=== PATIENT | female | born 2000 ===

== ENCOUNTER 2022-04-08 10:32 | Inpatient (IN) ==
[2022-04-08] MEDS ORDERED: OXYTOCIN 30 UNITS/500 ML BAG IV PRN ×2 (16:05→16:43)
[2022-04-08 17:32] LABS: Hematocrit (blood only) 33.8 % (37-47); Hemoglobin 10.4 g/dL (12.0-16.0); Mean Corpuscular Hemoglobin 20.6 pg (25-34); Mean Corpuscular Hgb Conc 30.8 g/dL (32-36); Mean Corpuscular Volume 66.8 fL (80-100); Platelet Count 243 K/uL (130-400); RDW Coefficient of Variation 19.8 % (11.5-14.5); RDW Standard Deviation 47.4 fL (36.4-46.3); Red Blood Count 5.06 M/uL (4.2-5.4); White Blood Count 11.73 K/uL (4.8-10.8)
[2022-04-08] MEDS: LACTATED RINGER'S 1,000 ML IV PRN ×2 (17:39→19:45)
[2022-04-08] MEDS ORDERED: BUTORPHANOL TARTRATE 1 MG/ML VIAL IV PRN (19:12)
[2022-04-08] MEDS ORDERED: BUTORPHANOL TARTRATE 1 MG/ML VIAL ONE (19:25)
[2022-04-08] MEDS ORDERED: Nursing to Pharmacy Communication SCH (20:00)
[2022-04-08] MEDS ORDERED: ePHEDrine sulfate 50 MG/ML AMP ONE (20:39)
[2022-04-08] MEDS ORDERED: fentaNYL citrate 100 MCG/2 ML VIAL ONE (20:40)
[2022-04-08] MEDS ORDERED: SODIUM CHLORIDE 0.9% INJ 10 ML VIAL ONE (20:40)
[2022-04-08] MEDS ORDERED: fentaNYL 2MCG/ML ROPIVACAINE 1.25MG/ML 100 ML BAG EPI ONE (20:40)
[2022-04-08] MEDS ORDERED: BUPIVACAINE 0.25% 30 ML VIAL ONE (20:40)
[2022-04-08 20:53] LABS: Rubella IgG Ab Immune (Immune)
[2022-04-08] MEDS ORDERED: ePHEDrine sulfate 50 MG/ML AMP IV PRN (21:24)
[2022-04-08] MEDS ORDERED: diphenhydrAMINE 50 MG/ML VIAL IV PRN (21:24)
[2022-04-08] MEDS ORDERED: NALOXONE HCL 0.4 MG/1 ML VIAL/CARP IV PRN (21:24)
[2022-04-08] MEDS ORDERED: fentaNYL 2MCG/ML ROPIVACAINE 1.25MG/ML 100 ML BAG EPI PRN (21:24)
[2022-04-08] MEDS ORDERED: NALBUPHINE HCL INJ 10 MG/ML AMP IV PRN (21:24)
[2022-04-08] MEDS ORDERED: NALOXONE HCL 1 MG in SODIUM CHLORIDE 0.9% 1000ML 1,000 ML IV PRN (21:24)
[2022-04-08] MEDS ORDERED: ONDANSETRON INJ 2 MG/ML 2 ML VIAL IV PRN (21:24)
--- NOTE | 2022-04-08 21:29 | Anesthesiology Consultation ---
Date of Service April 08, 2022 Nepali speaking Assessment & Plan Chart Review Chart Review: Patient NOT seen in Pre Admission Testing and Acceptable Risk for Labor Epidural Consults Requested none ASA ASA2 Proposed Anesthesia Anesthesia Type: Labor Epidural and CSE Risk / Benefits Reviewed With: PT / POA / Parent / Guardian, Accepts Plan and Informed Consent Obtained History Height/Weight Height: 5 ft 2 in Weight: 70.76 kg Allergies Allergy/AdvReac Type Severity Reaction Status Date / Time No Known Allergies Allergy Unverified 04/08/22 17:21 Medications Home Medications Medication Instructions Recorded Confirmed Last Taken prenat.vits,stephanie,kvs-aowa-ngvzp 1 tab PO DAILY 04/08/22 04/08/22 Unknown Active Medications Generic Name Dose Route Start Last Admin Trade Name Freq PRN Reason Stop Dose Admin Oxytocin 30 units in 500 mls @ 10 mls/hr 04/08/22 16:05 04/08/22 21:00 Pitocin IV 04/10/22 16:04 0.72 units/hr .Q24H PRN 12 mls/hr Labor Induction/Augmentation Titration Protocol 0.6 UNITS/HR Lactated Ringer's 1,000 mls @ 125 mls/hr 04/08/22 16:43 04/08/22 19:45 Lr IV 04/10/22 16:42 125 mls/hr .Q8H PRN Administration L&D Protocol Protocol NPO Date Last Intake of Fluids: 04/08/22 Time Last Intake of Fluids: 20:00 Date Last Intake of Solids: 04/08/22 Time Last Intake of Solids: 08:00 Past Medical History Medical History COVID-19 affecting childbirth No known health problems Exercise / Class Metabolic Activity II 4-5 Yardwork/Stairs/Walk up hill Past Surgical History Surgical History No history of previous surgery Past Anesthesia History No Hx of Anesthesia Complications and No Family Hx of Anesthesia Complications History of PONV No Hx of PONV and History of PONV Social History Smoking Status: Never smoker Hx Alcohol Use: No Hx Substance Use: No substance use type: does not use Review of Systems cough, runny nose Physical Exam Vital Signs Last Vital Signs Temp 36.9 C 05/13/22 20:45 Pulse 79 04/08/22 21:24 Resp 20 04/08/22 20:00 BP 136/82 04/08/22 21:23 Pulse Ox 100 04/08/22 21:24 ENMT Mouth: no TMJ abnormality Thyromental Distance: > or= 3.5 Finger Breadths Mallampati Class: II Neck normal visual inspection Respiratory normal respiratory effort and + cough Auscultation: lungs clear to auscultation bilaterally Cardiovascular Rate/Rhythm: regular rate and regular rhythm Musculoskeletal Spine: normal cervical ROM Neurologic moves all extremities Psychiatric Orientation: alert and oriented x 3 Testing Laboratory Results 04/08/22 17:20 Blood Type O Positive 04/08/22 17:20
[2022-04-09] MEDS ORDERED: Nursing to Pharmacy Communication SCH (01:15)
[2022-04-09] MEDS: LACTATED RINGER'S 1,000 ML IV PRN ×2 (02:06→04:35)
[2022-04-09] MEDS ORDERED: SODIUM CHLORIDE 0.9% INJ 10 ML VIAL ONE (03:19)
[2022-04-09] MEDS ORDERED: BUPIVACAINE 0.25% 30 ML VIAL ONE (03:19)
--- NOTE | 2022-04-09 03:47 | Communication Note ---
Date of Service: April 09, 2022 The patient's epidural was redosed. The note is on her epidural record.
[2022-04-09] MEDS ORDERED: CITRIC ACID/SODIUM CITRATE 15 ML UDC PO SCH (07:30)
[2022-04-09] MEDS ORDERED: cefOXitin 2,000 MG in DEXTROSE 5% 50 ML IV SCH (08:00)
[2022-04-09] MEDS ORDERED: ONDANSETRON INJ 2 MG/ML 2 ML VIAL ONE (08:14)
[2022-04-09] MEDS ORDERED: OXYTOCIN 10 UNITS/ML 10ML VIAL ONE ×2 (08:15→09:20)
[2022-04-09] MEDS ORDERED: fentaNYL citrate 100 MCG/2 ML VIAL ONE (08:40)
[2022-04-09] MEDS ORDERED: MoRPHine SULFATE PF 1 MG/ML 10 ML AMP/VIAL ONE (08:41)
[2022-04-09] MEDS ORDERED: ePHEDrine sulfate 50 MG/ML SYR ONE (09:13)
[2022-04-09] MEDS ORDERED: PHENYLEPHRINE 100MCG/ML 5ML SYR ONE ×2 (09:13→09:28)
[2022-04-09] MEDS ORDERED: OXYTOCIN 10 UNITS/ML 10ML VIAL IM ONE (09:20)
[2022-04-09] MEDS ORDERED: NALOXONE HCL 0.4 MG/1 ML VIAL/CARP IV PRN (09:26)
[2022-04-09] MEDS ORDERED: diphenhydrAMINE 50 MG/ML VIAL IV PRN (09:26)
[2022-04-09] MEDS ORDERED: NALOXONE HCL 1 MG in SODIUM CHLORIDE 0.9% 1000ML 1,000 ML IV PRN (09:26)
[2022-04-09] MEDS ORDERED: PROMETHAZINE HCL 25 MG in SODIUM CHLORIDE 0.9% 50 ML IV PRN (09:26)
[2022-04-09] MEDS ORDERED: ONDANSETRON INJ 2 MG/ML 2 ML VIAL IV PRN (09:26)
[2022-04-09] MEDS ORDERED: NALBUPHINE HCL INJ 10 MG/ML AMP IV PRN (09:26)
[2022-04-09] MEDS ORDERED: MoRPHine SULFATE PF 1 MG/ML 10 ML AMP/VIAL INT SPINAL ONE (09:26)
[2022-04-09] MEDS ORDERED: NALOXONE HCL 0.08 MG in SYRINGE 1.8 ML IV PRN (09:26)
[2022-04-09] MEDS ORDERED: LACTATED RINGER'S 500 ML IV PRN (09:26)
[2022-04-09] MEDS ORDERED: ePHEDrine sulfate 50 MG/ML AMP IV PRN (09:26)
--- NOTE | 2022-04-09 09:26 | Anesthesia Procedure Note ---
Date of Service April 09, 2022 Anesthesia Post Epidural Note Vital Signs Vital Signs: Temp Pulse Resp BP Pulse Ox 37.5 C 115 H 20 141/88 H 100 04/09/22 07:32 04/09/22 08:30 04/09/22 07:32 04/09/22 08:26 04/09/22 08:30 Pain Intensity Abdomen: Pain Intensity: 8 Notes Mental Status: alert / awake / arousable Nausea / Vomiting: adequately controlled Pain: adequately controlled Airway Patency, RR, SpO2: stable & adequate BP & HR: stable & adequate Hydration State: stable & adequate Neuraxial Anesthesia: was administered and sensory block is resolving Anesthetic Complications: no major complications apparent Epidural: Removed without complications and With tip intact Notes: @ 0842 epidural cath removed w/ tip intact
[2022-04-09] MEDS ORDERED: NO NARCOTICS OR SEDATIVES SCH (09:30)
[2022-04-09] MEDS ORDERED: SODIUM CHLORIDE 0.9% 1000ML 1,000 ML IV SCH (09:30)
--- NOTE | 2022-04-09 09:32 | Communication Note ---
Date of Service: April 09, 2022 At 0842 epidural cath removed w/tip intact; Pt had patchy epidural analgesia w/ multiple top off boluses,hence, the decision to remove epidural cath, and perf orm SAB for definitive conduction block.
[2022-04-09] MEDS ORDERED: BENZOCAINE 20% AER SPR 82.5 GM CAN EXT PRN (09:44)
[2022-04-09] MEDS ORDERED: HYDROCORTISONE ACETATE 25 MG SUPP PR PRN (09:44)
[2022-04-09] MEDS ORDERED: MAGNESIUM HYDROXIDE SUSP 30 ML UDC PO PRN (09:44)
[2022-04-09] MEDS ORDERED: SENNA 8.6 MG TAB PO PRN (09:44)
[2022-04-09] MEDS ORDERED: DIPHTHERIA/TETANUS/PERTUSSIS 0.5 ML SYR/VIAL IM ONE (09:44)
[2022-04-09] MEDS ORDERED: OXYTOCIN 20 UNITS in LACTATED RINGER'S 20 ML IV SCH (09:45)
[2022-04-09] MEDS ORDERED: LACTATED RINGER'S 1,000 ML IV SCH (09:45)
--- NOTE | 2022-04-09 09:59 | History and Physical Report ---
CHIEF COMPLAINT: Term , arrest of labor. HISTORY OF PRESENT ILLNESS: The patient is a 41-year-old 1, para 0, who has been followed in our office for care and delivery. She came in at about 40 weeks and 2 days. She had come in about 2 days earlier, was sent home, then came in the morning of admission having regular contract ions. She was observed all day, she started to make cervical change. She was diagnosed as being in labor. She subsequently was augmented with IV Pitocin, had her water ruptured. At that time, there w as light meconium noted. She eventually stimulated with IV Pitocin and she dilated up to about 8 cm and a 0 station and had an arrest of labor for over 5 hours with no descent or further dilatation. Af ter 5 hours with maximal stimulation with IV Pitocin, she was diagnosed as having cephalopelvic dispr oportion scheduled for a low segment section. ALLERGIES: She has no known drug allergies. PAST SURGICAL HISTORY: She has had no previous surgeries. MEDICATIONS: She is on no chronic pills or medications. SOCIAL HISTORY: No smoking, no alcohol intake. FAMILY HISTORY: Mom is 40 in good health. Father 41 in good health. Two brothers, 1 sister, all in good health. REVIEW OF SYSTEMS: HEAD: No symptoms of frequent or severe headaches. EYES: No symptoms of blurred vision or double vision. EARS: No symptoms of frequent ear infections, difficulty hearing. NOSE: No symptoms of frequent nosebleeds or difficulty breathing through her nose. THROAT: No symptoms of frequent or severe sore throat or difficulty swallowing. RESPIRATORY SYSTEM: No history of asthma, chest pain, or shortness of breath. PHYSICAL EXAMINATION: GENERAL: Well-developed, well-nourished 21-year-old female, alert, oriented x3, in moderate amount o f distress due to contractions. EYES: Conjunctivae are pink. Sclerae white, no evidence of jaundice. ENT: Ears had normal light reflex bilaterally. Nose had normal mucosa. Septum is midline. There w ere no polyps. Throat had no erythema or evidence of infection. Teeth are in good state of repair. HEAD: Normocephalic, normal distribution of hair. NECK: Supple. Trachea midline. Thyroid is not enlarged. There is no adenopathy appreciated. Both carotids are of good intensity. CHEST: Clear to auscultation and percussion. No wheezes, rales or rhonchi appreciated. HEART: Had regular rhythm. S1 and S2 are normal. BREASTS: Normal. ABDOMEN: Soft and nontender. Abdomen revealed term size fetus. Estimated weight over 7-8 pounds. N o CVA tenderness, no calf tenderness. PELVIC: Revealed cervix to be 8 cm, vertex presentation, 0 station. IMPRESSION OF THIS CASE: Arrest of labor secondary to cephalopelvic disproportion. Job ID: [id number]
--- NOTE | 2022-04-09 10:16 | Anesthesiology Progress Note ---
Date of Service April 09, 2022 Anesthesia Post Procedure Vital Signs Vital Signs: Temp Pulse Resp BP Pulse Ox 04/09/22 10:10 74 121/74 99 04/09/22 10:05 80 99 04/09/22 10:00 82 120/68 99 04/09/22 09:55 96 H 100 04/09/22 09:50 85 119/67 99 04/09/22 08:31 20 04/09/22 08:30 115 H 100 04/09/22 08:26 100 H 141/88 H 04/09/22 08:25 106 H 100 04/09/22 08:20 101 H 99 04/09/22 08:15 104 H 99 04/09/22 08:10 110 H 131/84 100 04/09/22 08:05 106 H 100 04/09/22 08:00 98 H 20 99 04/09/22 07:56 93 H 134/82 04/09/22 07:55 96 H 99 04/09/22 07:50 96 H 99 04/09/22 07:45 96 H 99 04/09/22 07:41 93 H 136/87 04/09/22 07:40 92 H 99 04/09/22 07:35 93 H 99 04/09/22 07:32 37.5 C 20 04/09/22 07:30 105 H 100 04/09/22 07:25 102 H 135/85 100 04/09/22 07:20 107 H 100 04/09/22 07:15 101 H 100 04/09/22 07:10 116 H 100 04/09/22 07:05 111 H 100 04/09/22 07:01 20 04/09/22 07:00 114 H 100 04/09/22 06:57 110 H 156/84 H 04/09/22 06:55 117 H 100 04/09/22 06:50 110 H 100 04/09/22 06:45 114 H 20 100 04/09/22 06:41 104 H 147/91 H 04/09/22 06:40 102 H 100 04/09/22 06:35 109 H 100 04/09/22 06:30 107 H 20 100 04/09/22 06:26 100 H 139/88 04/09/22 06:25 101 H 99 04/09/22 06:23 37.8 C H 04/09/22 06:20 97 H 99 04/09/22 06:15 95 H 99 04/09/22 06:10 100 H 124/69 99 04/09/22 06:05 96 H 98 04/09/22 06:00 95 H 18 99 04/09/22 05:56 90 134/78 04/09/22 05:55 104 H 100 04/09/22 05:50 96 H 99 04/09/22 05:45 96 H 99 04/09/22 05:41 109 H 141/68 H 04/09/22 05:40 108 H 100 04/09/22 05:35 96 H 99 04/09/22 05:30 96 H 20 99 04/09/22 05:26 104 H 134/86 04/09/22 05:25 104 H 100 04/09/22 05:20 102 H 100 04/09/22 05:15 120 H 100 04/09/22 05:11 97 H 126/75 04/09/22 05:10 102 H 98 04/09/22 05:05 120 H 100 04/09/22 05:00 114 H 100 04/09/22 04:55 110 H 122/71 100 04/09/22 04:50 111 H 100 04/09/22 04:45 101 H 99 04/09/22 04:41 103 H 125/78 04/09/22 04:40 37.5 C 104 H 100 04/09/22 04:35 97 H 99 04/09/22 04:30 100 H 18 98 04/09/22 04:25 97 H 126/68 99 04/09/22 04:20 99 H 99 04/09/22 04:15 95 H 99 04/09/22 04:11 93 H 120/71 04/09/22 04:10 100 H 118/69 100 04/09/22 04:05 95 H 99 04/09/22 04:00 98 H 18 99 04/09/22 03:55 95 H 118/69 100 04/09/22 03:50 95 H 99 04/09/22 03:45 97 H 100 04/09/22 03:40 104 H 117/67 100 04/09/22 03:35 113 H 100 04/09/22 03:30 113 H 20 99 04/09/22 03:25 111 H 116/61 100 0514/22 03:20 94 H 99 04/09/22 03:15 97 H 99 04/09/22 03:10 93 H 113/60 99 04/09/22 03:05 93 H 99 04/09/22 03:00 109 H 20 100 04/09/22 02:56 89 112/60 04/09/22 02:55 93 H 99 04/09/22 02:50 92 H 99 04/09/22 02:45 95 H 20 100 04/09/22 02:40 100 H 120/77 100 04/09/22 02:35 92 H 99 04/09/22 02:30 95 H 100 04/09/22 02:26 99 H 110/67 04/09/22 02:25 37.3 C 109 H 100 04/09/22 02:20 118 H 100 04/09/22 02:15 105 H 99 04/09/22 02:11 145/105 H 04/09/22 02:10 109 H 100 04/09/22 02:05 88 100 04/09/22 02:00 91 H 20 100 04/09/22 01:55 83 125/72 100 04/09/22 01:50 88 100 04/09/22 01:45 87 99 04/09/22 01:41 84 121/74 04/09/22 01:40 77 100 04/09/22 01:35 83 99 04/09/22 01:30 88 20 100 04/09/22 01:26 88 136/93 04/09/22 01:25 77 100 04/09/22 01:20 82 100 04/09/22 01:15 84 100 04/09/22 01:10 79 127/71 99 04/09/22 01:05 88 100 04/09/22 01:00 86 22 99 04/09/22 00:56 92 H 140/70 04/09/22 00:55 92 H 100 04/09/22 00:50 94 H 100 04/09/22 00:45 37.0 C 82 100 04/09/22 00:42 86 139/80 04/09/22 00:40 91 H 100 04/09/22 00:35 94 H 100 04/09/22 00:30 72 20 100 04/09/22 00:26 81 142/85 H 04/09/22 00:25 91 H 100 04/09/22 00:20 82 100 04/09/22 00:15 87 100 04/09/22 00:12 88 131/85 04/09/22 00:10 87 100 04/09/22 00:05 87 100 04/09/22 00:00 99 H 18 100 04/08/22 23:57 78 113/70 04/08/22 23:55 84 100 04/08/22 23:50 76 100 04/08/22 23:45 71 100 04/08/22 23:42 68 126/68 04/08/22 23:40 73 100 04/08/22 23:35 84 100 04/08/22 23:30 91 H 20 100 04/08/22 23:26 121 H 126/72 04/08/22 23:25 95 H 100 04/08/22 23:20 92 H 100 04/08/22 23:15 96 H 100 04/08/22 23:10 84 100 04/08/22 23:05 84 100 04/08/22 23:00 100 H 20 100 04/08/22 22:56 80 104/57 L 04/08/22 22:55 83 100 04/08/22 22:50 71 100 04/08/22 22:45 73 100 04/08/22 22:42 86 98/53 L 04/08/22 22:40 90 100 04/08/22 22:37 36.7 C 04/08/22 22:35 92 H 100 04/08/22 22:30 96 H 18 100 04/08/22 22:26 120 H 113/73 04/08/22 22:25 107 H 100 04/08/22 22:20 84 100 04/08/22 22:15 92 H 98 04/08/22 22:10 85 99 04/08/22 22:09 97 H 102/58 L 04/08/22 22:07 93 H 109/55 L 04/08/22 22:06 86 104/59 L 04/08/22 22:05 89 100 04/08/22 22:04 75 102/63 04/08/22 22:02 74 109/58 L 04/08/22 22:00 90 100 04/08/22 21:59 88 136/82 04/08/22 21:55 95 H 100 04/08/22 21:50 83 99 04/08/22 21:47 88 85 L 04/08/22 21:45 82 99 04/08/22 21:40 84 100 04/08/22 21:30 20 04/08/22 21:29 83 100 04/08/22 21:24 79 100 04/08/22 21:23 80 136/82 04/08/22 21:19 81 96 04/08/22 21:14 99 H 99 04/08/22 21:09 91 H 100 04/08/22 21:07 75 141/92 H 04/08/22 21:04 85 100 04/08/22 21:00 20 04/08/22 20:59 83 100 04/08/22 20:54 69 100 04/08/22 20:49 79 161/92 H 100 04/08/22 20:45 36.9 C 04/08/22 20:30 20 04/08/22 20:00 20 04/08/22 19:10 37.2 C 83 20 125/82 04/08/22 18:11 76 122/70 04/08/22 14:18 36.4 C L 67 20 119/78 04/08/22 11:00 81 118/74 04/08/22 10:42 36.7 C 81 20 118/74 Pain Intensity Abdomen: Pain Intensity: 8 Transfer of Care Handoff Completed per policy Notes Mental Status: alert / awake / arousable Patient Amnestic to Procedure: Yes Nausea / Vomiting: adequately controlled Pain: adequately controlled Airway Patency, RR, SpO2: stable & adequate BP & HR: stable & adequate Hydration State: stable & adequate Neuraxial Anesthesia: was administered and sensory block is resolving Anesthetic Complications: no major complications apparent
[2022-04-09] MEDS: OXYTOCIN 20 UNITS in LACTATED RINGER'S 1,000 ML IV SCH ×2 (12:15→20:14)
[2022-04-09] MEDS: KETOROLAC 30 MG/ML VIAL IV PRN ×2 (16:30→23:41)
[2022-04-09] MEDS: SIMETHICONE 80 MG CHEW PO SCH ×3 (17:11→20:20)
--- NOTE | 2022-04-09 17:32 | Operative Report (OR) ---
DATE OF PROCEDURE: 04/09/2022. INDICATIONS FOR SURGERY: Arrest of labor. PREOPERATIVE DIAGNOSES: Cephalopelvic disproportion, meconium-stained amniotic fluid, low-grade fever . POSTOPERATIVE DIAGNOSES: Cephalopelvic disproportion, meconium-stained amniotic fluid, low-grade fev er. Thick meconium noted at time of , delivered a live female infant. SURGEON: Ebenezer Escobedo MD. MANAGER NICU: Cristo Boykin MD. ESTIMATED BLOOD LOSS: 300 mL ANESTHESIA: Spinal. OPERATIVE FINDING AND PROCEDURE: The patient was brought to the OR table, correctly identified by jeronimo kennedy and conversation. Spinal anesthesia was administered. Posadas catheter was inserted aseptically in the bladder, connected to gravity drainage. Compression stockings were placed. The patient was positioned on the OR table. Lower abdomen was painted with an alcohol based sterilizing solution and draped in the usual sterile fashion. Level of the anesthesia was tested and found to be adequate. Pfannenstiel incision was made through the lower abdomen, carried down to the anterior fascia. Hemos tasis was secured by electrocauterization. Fascia was incised transversely the underlying muscle by blunt and sharp dissection. Recti muscles were in the midline, supposed at lizette toneum, which was carefully raised and entered. The incision was then widened laterally. A bladder retractor was placed. A lower uterine segment was visualized. Incision was made above the bladder. The uterine peritoneum was entered. Incision was carried laterally. Bladder was undermined bluntly, pushed out of the operative field. Lower uterine segment was scored with a knife and entered with t he scissors. Thick meconium was seen coming through the incision at this time, the zmt operator's hand w as inserted into the uterus. The head was dislodged from the pelvis and then delivered through the i ncision. was suctioned through the mouth and the nose before the body was delivered, then the body of the was delivered. Cord blood was stripped and cord was clamped and cut. The was attended to by the system development manager present at the time of delivery. Cord blood was taken. Placent a was removed manually. The lower uterine segment was approximated in 2 distinct layers. The muscul ar layer was approximated with a continuous heavy chromic and then the fascial layer was approximated over this with a continuous heavy Vicryl. Following this, hemostasis was excellent. The peritoneal edges were then restored with a 3-0 chromic. This restored the integrity of the vesicouterine fold. Uterus, tubes, and ovaries were inspected. The pelvis was cleansed of all blood clots and debris. Uterus, tubes, and ovaries were reinserted into the abdominal cavity. Careful anatomical approximat ion of the anterior abdominal wall was performed. The peritoneum was closed with a mattress suture o f chromic catgut. Recti muscles were approximated with interrupted [id number]-[id number] suture chromic ca tgut. Fascia was closed with continuous interlocking suture of Vicryl on each side tied in the midli ne. Subcutaneous was approximated with continuous plain. Skin edges were approximated with staple c lips. Job ID: [id number]
[2022-04-09] MEDS: DOCUSATE SODIUM 100 MG CAP PO SCH (20:20)
[2022-04-10] MEDS ORDERED: DC INTRASPINAL MORPHINE ONE (03:26)
[2022-04-10] MEDS ORDERED: MEPERIDINE HCL 50 MG/ML CARP IV PRN (03:27)
[2022-04-10] MEDS ORDERED: ZOLPIDEM TARTRATE 5 MG TAB PO PRN (03:27)
[2022-04-10] MEDS ORDERED: ONDANSETRON INJ 2 MG/ML 2 ML VIAL IV PRN (03:27)
[2022-04-10] MEDS ORDERED: diphenhydrAMINE Capsule 25 MG CAP PO PRN (03:27)
[2022-04-10] MEDS ORDERED: PROMETHAZINE HCL 25 MG in SODIUM CHLORIDE 0.9% 50 ML IV PRN (03:27)
[2022-04-10] MEDS ORDERED: diphenhydrAMINE 50 MG/ML VIAL IV PRN (03:27)
[2022-04-10] MEDS ORDERED: KETOROLAC 30 MG/ML VIAL IV PRN (03:27)
[2022-04-10] MEDS: oxyCODONE/ACETAMINOPHEN 5mg/325mg TAB PO PRN ×4 (05:21→19:13)
[2022-04-10] MEDS: IBUPROFEN 600 MG TAB PO PRN ×4 (05:22→19:12)
--- NOTE | 2022-04-10 06:02 | Obstetrical Progress Note ---
Date of Service April 10, 2022 Assessment & Plan Admission and Anticipated Discharge Date Admission Date: April 08, 2022 Subjective abdomen soft and non tender incision is clean and dry bandage removed no calf tenderness passing flatus Results & Data ([facility]) Vital Signs (Past 12 Hours) Vital Signs Temp Pulse Resp BP Pulse Ox 04/10/22 05:00 37.1 C 93 H 18 130/86 98 04/10/22 02:40 16 98 04/10/22 01:40 16 97 04/10/22 00:40 18 100 04/09/22 23:40 18 100 04/09/22 23:37 37.0 C 91 H 16 123/84 100 04/09/22 19:35 37.1 C 78 20 111/74 99 04/09/22 18:45 16 97
[2022-04-10 06:07] LABS: HBSAG NON-REACTIVE (NON-REACTIVE)
[2022-04-10 06:32] LABS: Basophils # (auto) 0.01 K/uL (0-0.2); Basophils % (auto) 0.1 %; Eosinophils # (auto) 0.08 K/uL (0-0.5); Eosinophils % (auto) 0.5 %; Hematocrit (blood only) 25.8 % (37-47); Immature Granulocytes # (auto) 0.05 K/uL (0.00-0.02); Immature Granulocytes % (auto) 0.3 %; Lymphocytes # (auto) 2.49 K/uL (1.2-3.4); Mean Corpuscular Volume 67.7 fL (80-100); Mean Platelet Volume 9.9 fL (7.4-10.4); Monocytes # (auto) 1.04 K/uL (0.11-0.59); Monocytes % (auto) 7.1 %; Neutrophils # (auto) 11.01 K/uL (1.4-6.5); Platelet Count 188 K/uL (130-400); RDW Coefficient of Variation 19.7 % (11.5-14.5); RDW Standard Deviation 48.4 fL (36.4-46.3); Red Blood Count 3.81 M/uL (4.2-5.4); White Blood Count 14.68 K/uL (4.8-10.8)
[2022-04-10 06:51] LABS: Hypochromasia Present; Microcytosis Present; Polychromasia 1+
[2022-04-10] MEDS: PRENATAL VITAMIN 1 TAB PO SCH (09:20)
[2022-04-10] MEDS: DOCUSATE SODIUM 100 MG CAP PO SCH ×2 (09:20→19:15)
[2022-04-10] MEDS: FERROUS SULFATE 325 MG TAB PO SCH (09:20)
[2022-04-10] MEDS: SIMETHICONE 80 MG CHEW PO SCH ×4 (09:20→19:25)
[2022-04-10] MEDS ORDERED: bisacodyL 5 MG TABEC PO SCH (20:00)
[2022-04-11] MEDS: IBUPROFEN 600 MG TAB PO PRN ×4 (01:13→23:19)
[2022-04-11] MEDS: oxyCODONE/ACETAMINOPHEN 5mg/325mg TAB PO PRN ×4 (01:16→23:20)
[2022-04-11 06:05] LABS: Hematocrit (blood only) 23.9 % (37-47); Hemoglobin 7.4 g/dL (12.0-16.0)
[2022-04-11] MEDS: DOCUSATE SODIUM 100 MG CAP PO SCH ×2 (08:10→20:13)
[2022-04-11] MEDS: SIMETHICONE 80 MG CHEW PO SCH ×3 (08:10→20:14)
[2022-04-11] MEDS: PRENATAL VITAMIN 1 TAB PO SCH (08:10)
--- NOTE | 2022-04-11 08:26 | Obstetrical Progress Note ---
Date of Service April 11, 2022 Assessment & Plan Admission and Anticipated Discharge Date Admission Date: April 08, 2022 Subjective abdomen soft and non tender no calf tenderness ambulating well incision is clean and dry vaginal bleeding scant hgb 7.4 Results & Data ([facility]) Vital Signs (Past 12 Hours) Vital Signs Temp Pulse Resp BP Pulse Ox 04/11/22 05:00 37.1 C 20 134/81 98 04/11/22 00:00 36.9 C 70 18 144/90 H 99
[2022-04-11] MEDS ORDERED: bisacodyL 10 MG SUPP PR PRN (09:44)
[2022-04-11] MEDS: FERROUS SULFATE 325 MG TAB PO SCH (15:04)
[2022-04-12 06:42] LABS: Hematocrit (blood only) 24.8 % (37-47); Hemoglobin 7.7 g/dL (12.0-16.0)
--- NOTE | 2022-04-12 08:24 | Obstetrical Progress Note ---
Date of Service April 12, 2022 Assessment & Plan Admission and Anticipated Discharge Date Admission Date: April 08, 2022 Subjective abdomen soft and non tender incision is clean and dry no calf tenderness ambulating well vaginal bleeding scant hgb 7.7 ready for discharge Results & Data ([facility]) Vital Signs (Past 12 Hours) Vital Signs Temp Pulse Pulse Resp BP Pulse Ox 04/12/22 07:20 36.9 C 75 16 121/83 04/12/22 04:00 37.1 C 80 20 123/74 98 04/11/22 23:30 37.1 C 81 18 L 98 04/11/22 20:30 37.2 C 89 18 125/85 98
[2022-04-12] MEDS: SIMETHICONE 80 MG CHEW PO SCH (08:29)
[2022-04-12] MEDS: PRENATAL VITAMIN 1 TAB PO SCH (08:29)
[2022-04-12] MEDS: FERROUS SULFATE 325 MG TAB PO SCH (08:29)
[2022-04-12] MEDS: DOCUSATE SODIUM 100 MG CAP PO SCH (08:29)
[2022-04-12] MEDS: oxyCODONE/ACETAMINOPHEN 5mg/325mg TAB PO PRN (08:30)
[2022-04-12] MEDS: IBUPROFEN 600 MG TAB PO PRN (08:30)
--- NOTE | 2022-04-12 09:19 | Discharge Summary (DS) ---
HOSPITAL COURSE: She is a 1, para 1, group B strep negative, due date is 04/06/2022, was see n on labor and delivery at least twice for episodes of premature labor. At the time of admission, kanwal engel was admitted, observed. She exhibited cervical change. She was over her due date. She was diagno sed as being in early labor. Eventually, her contractions were augmented with IV Pitocin and she req uested and received epidural for pain control. She continued to progress up to about 8 cm. We ania nued to give her IV Pitocin. It should be noted that when the membranes were ruptured, there was lig ht meconium. At times, the Pitocin had to be shut off, then started at a lower rate due to some decel erations and some also tachycardia. So, we were giving her maximum doses of Pitocin and she had arre st of labor at about 8 cm for a good 5 hours. After this occurred, we diagnosed her with cephalopelvic disproportion. She went for a primary low s egment section. At the time of , she had thick meconium, was noted on entering the abdomen. was then delivered, suctioned through the mouth and the nose. Body was delivered. Infant did well postoperatively. On admission, her hemoglobin was 8.0. Following surgery, the hemog lobin had fallen to 7.4 and on the day of discharge, it had risen to 7.7. Postoperatively, the patie nt did excellent. She remained afebrile throughout her postoperative course. Her bowel sounds retur santana within 24 hours. Her incision appeared to be clean and dry. At the time of discharge, she was am bulating well, eating well. She was given prescriptions for Percocet, also told to continue to take her vitamins with iron and to call if she had a temperature over 100 or any heavy bleeding. Instructions were all confirmed via the Internet and a live visual construction contractor. She was also instruc jocelyn to return to the office in about 1 week for removal of patti. Job ID: [id number]
== END 2022-04-12 10:30 | disposition home or self-care (01) | DRG 788 ==
LOC: OPB 10:32 → 4S1 10:33 → 4E1 04-09 12:59
DX: Z37.0 Single live birth; O65.4 Obstructed labor due to fetopelvic disproportion, unspecified; O77.0 Labor and delivery complicated by meconium in amniotic fluid; R50.9 Fever, unspecified; Z3A.40 40 weeks gestation of pregnancy; O62.1 Secondary uterine inertia